=== PATIENT | female | born 1975 ===

== ENCOUNTER 2024-09-25 15:24 | Outpatient (REF) | payer OTHER, SELFPAY ==
--- OUTSIDE RECORDS SUMMARY | 2024-09-25 16:17 | XMS_ITS | Continuity of Care Document ---
Author Organization [facility] Address [address] [facility] [address] [place], [place] Phone [phone] Care Team Providers Care Mysql Dba Name Role Phone Kathy Bill MD Care Team Information Mental Health Nurse Practitioner U navailable CAIT WORKMAN M.D. Care Team Information Rec eiver Unavailable Kathy Bill MD Primary Care Physician Unavailab le Problems Active Problems Provider Date Osteoporosis Cait Workman M.D. Onset: 0 08/10/2021 Social History Type Date Description Comments Sex Unknown Allergies and adverse reactions Active Allergies Criticality Reaction Severity Comments Date Doxycycline Unable to assess criticality 07/27/2021 Tetracycline Unable to assess criticality 07/27/2021 Erythromycin Unable to assess criticality 07/27/2021 Amoxicillin Unable to assess criticality 07/27/2021 Sulfur Unable to assess criticality 07/27/2021 Medications Active Medications SIG Qnty Indications Ordering Provider Date CA+ citrate 250 bid(08/2021)->qid (08/2021) Cait Workman M.D. 08/26/2021 Alendronate [id number] Tablets 1 tab by mouth every week 4tabs M81.0 Cait Workman M.D. 08/26/2021 Vit D Drops 500/drop x2(08/2021)->3/d Unknown
== END 2024-09-25 15:25 | disposition home or self-care (01) ==
LOC: CF 15:24
DX: Z13.89 Encounter for screening for other disorder (principal)

== ENCOUNTER 2024-10-26 08:13 | Outpatient (REF) | payer OTHER, SELFPAY ==
--- NOTE | ~2024-10-26 | US_ITS ---
EXAMINATION: US SCREENING ULTRASOUND BREAST, BILATERAL CLINICAL INFORMATION: Dense breasts on mammography. Screening ultrasound. COMPARISON: None available. TECHNIQUE: Ultrasound is performed using grayscale imaging and color Doppler. Imaging is performed to include the four quadrants and retroareolar region. Both breasts are imaged. FINDINGS: Right breast: There is no suspicious finding by ultrasound. There is no solid mass or focal architectural abnormality. Left breast: There is no suspicious finding by ultrasound. There is no solid mass or focal architectural abnormality. US/US breast BI complete IMPRESSION: No suspicious findings on screening breast ultrasound. ASSESSMENT: BI-RADS 1 - Negative RECOMMENDATION: 1 year F/U This patient's information was entered into a reminder system with a target due date for their next mammogram. Electronically signed by: Brit Garcia DO 10/26/2024 09:10 AM EDT
--- OUTSIDE RECORDS SUMMARY | 2024-10-26 08:17 | XMS_ITS | Continuity of Care Document ---
Author Organization [facility] Address [address] [facility] [address] [place], [place] Phone [phone] Care Team Providers Care Dockworker Name Role Phone Kathy Bill MD Care Team Information Track Layer U navailable CAIT WORKMAN M.D. Care Team [...] bid(08/2021)->qid (08/2021) Cait Workman M.D. 08/26/2021 Alendronate [id number] Tablets 1 tab by mouth every week 4tabs M81.0 Cait Workman M.D. 08/26/2021 Vit D Drops 500/drop x2(08/2021)->3/d Unknown
--- OUTSIDE RECORDS SUMMARY | 2024-10-26 08:18 | XMS_ITS | Data Portability ---
Author Organization [facility], [facility] Address [address] [place] [address] Care Team Providers [employer] Recruiter Name Role Phone MICKI CANALES Primary Care Provider Assessment Encounter Date Assessment Date Assessment LastModified by Organization Details LastModified Time 02/11/2023 02/11/2023 I have spent a total of 45 min preparing for this visit, examining and treating the patient, reviewing history and records as well as coordinating care for the patient. [email or web address] Not available 02/16/2023 08:30:52 03/04/2023 03/04/2023 I have spent a total of 30 min preparing for this visit, examining and treating the patient, reviewing history and records as well as coordinating care for the patient. [email or web address] Not available 03/04/2023 10:07:31 06/06/2024 06/06/2024 Patient agreed t o this visit via a secure telehealth platform. Patient understands this is a scheduled visit and the usual procedures with regard to billing and confidentiality apply. Patient was notified that the provider location is [facility] Patient location: home During the visit the patient? s medical history and medical record were reviewed. The patient was notified to call our office for worsening or urgent symptoms. Not available 06/06/2024 15:10:13 07/18/2024 07/18/2024 Patient is seen and examined with LEIGH Wall. Assessment and Plan formulated with the above student collaboratively with the patient. Micki Canales MD Not available 07/18/2024 16:50:14 Plan of Treatment Reminders Order Date Submit Date Provider Last Modified By Organization Details Last Modified Time Details Appointments Wellne ss Visit 30 2024 11:00A M Micki Canales MD Not available Not available Not available Lab CMP, serum or plasma 2022 023 [facility], [address] [place] [address], [address], 03/07/2023 12:10:10 CBC 2022 023 [facility], [address] [place] [address], [address], 03/04/2023 12:19:06 Referral neurol ogist referr al 2022 023 [email or web address] anabel Wooten MD, [address], [address], 04/19/2023 15:29:54 Procedures None record ed. Surgeries None record ed. Imaging MRI, brain, w/wo contra st - Withou t is OK. Thank you. 2022 023 [facility] ([facility]), [address] [place], [address], 02/14/2023 08:51:38 Medication Orders escita lopram 5 mg tablet 2023 024 [facility] #[id number], [address] [place], [address], 07/18/2024 15:00:12 escita lopram 5 mg tablet 2023 024 [facility][id number], [address] [place], [address], 06/06/2024 15:13:38 sumatr iptan 50 mg tablet 2022 023 [email or web address] [facility] #[id number], [address] [place], [address], 12/21/2023 11:50:07 Patient TargetsNo targets recorded. Patient InstructionsNo instructions recorded. Reason for Referral Neurologist Referral for Patricia medina Referring Physician: Jaye Shaver, Family Medicine, Encounter Date: 02/11/2023 Results Created Date Observation Date Name Description Value Unit Range Abnormal Flag Note LastModifiedBy Organization Detail LastModifiedTime 02/17/20 23 02/17/2023 CBC WBC 9.19 K/? ? ?L 3.98-1 0.04 Not Available [address], [address], 02/17/2023 11:10:17 02/17/20 23 02/17/2023 CBC RBC 4.43 M/? ? ?L 3.93-5 .22 Not Available [address], [address], 02/17/2023 11:10:17 02/17/20 23 02/17/2023 CBC HGB 13.7 g/dL 11.2-1 5.7 Not Available [address], [address], 02/17/2023 11:10:17 02/17/20 23 02/17/2023 CBC HCT 43.6 % 34.1-4 4.9 Not Available [address], [address], 02/17/2023 11:10:17 02/17/20 23 02/17/2023 CBC MCV 98.4 fL 79.4-9 4.8 high Not Available [address], [address], 02/17/2023 11:10:17 02/17/20 23 02/17/2023 CBC MCH 30.9 pg 25.6-3 2.2 Not Available [address], [address], 02/17/2023 11:10:17 02/17/20 23 02/17/2023 CBC MCHC 31.4 g/dL 32.2-3 5.5 low Not Available [address], [address], 02/17/2023 11:10:02/17/2002/17/2023 CBC plt 357 K/? ? ?L 182-36 9 Not Available [address], [address], 02/17/2023 11:10:02/17/2002/17/2023 CBC MPV 10.6 fL 9.4-12 .3 Not Available [address], [address], 02/17/2023 11:10:02/17/2002/17/2023 CBC neut% 77.9 % 34.0-7 1.1 high Not Available [address], [address], 02/17/2023 11:10:02/17/2002/17/2023 CBC neut# 7.16 1.56-6 .13 high Not Available [address], [address], 02/17/2023 11:10:02/17/2002/17/2023 CBC lymph % 14.4 % 19.3-5 1.7 low Not Available [address], [address], 02/17/2023 11:10:17 02/17/2002/17/2023 CBC lymph # 1.32 K/? ? ?L 1.18-3 .74 Not Available [address], [address], 02/17/2023 11:10:02/17/2002/17/2023 CBC mono% 5.2 % 4.7-12 .5 Not Available [address], [address], 02/17/2023 11:10:17 02/17/2002/17/2023 CBC mono# 0.48 0.24-0 .56 Not Available [address], [address], 02/17/2023 11:10:17 02/17/20 23 02/17/2023 CBC eo% 1.5 % 0.7-5. 8 Not Available [address], [address], 02/17/2023 11:10:17 02/17/20 23 02/17/2023 CBC eo# 0.14 0.04-0 .36 Not Available [address], [address], 02/17/2023 11:10:17 02/17/20 23 02/17/2023 CBC baso% 0.8 % 0.1-1. 2 Not Available [address], [address], 02/17/2023 11:10:17 02/17/20 23 02/17/2023 CBC baso# 0.07 0.00-0 .08 Not Available [address], [address], 02/17/2023 11:10:17 02/17/20 23 02/17/2023 CBC RDW-CV 12.8 % 11.7-1 4.4 Not Available [address], [address], 02/17/2023 11:10:17 02/17/20 23 02/17/2023 CBC Ig% 0.200 % 0.000- 1.500 Ig % >0.5 Indic ates possi ble Left Shift Not Available [address], [address], 02/17/2023 11:10:17 02/17/20 23 02/17/2023 CBC Ig# 0.020 0.000- 0.093 Not Available [address], [address], 02/17/2023 11:10:17 02/17/20 23 02/17/2023 CBC NRBC% 0.0 % 0.0-0. 2 Not Available [address], [address], 02/17/2023 11:10:17 02/17/20 23 02/17/2023 CBC NRBC# 0.000 0.000- 0.012 Not Available [address], [address], 02/17/2023 11:10:17 02/17/20 23 02/17/2023 COMP. METAB OLIC PANEL glucose 99 mg/dL 70-100 Not Available [address], [address], 02/17/2023 11:14:30 02/17/20 23 02/17/2023 COMP. METAB OLIC PANEL BUN 8 mg/dL 7-18 Not Available [address], [address], 02/17/2023 11:14:30 02/17/20 23 02/17/2023 COMP. METAB OLIC PANEL creatinine 0.6 mg/dL 0.8-1. 3 low Not Available [address], [address], 02/17/2023 11:14:30 02/17/20 23 02/17/2023 COMP. METAB OLIC PANEL B/C 13.3 ratio Not Available [address], [address], 02/17/2023 11:14:30 02/17/20 23 02/17/2023 COMP. METAB OLIC PANEL GFR >=60ML /MIN mL/mi n normal >=60m L/min - Jenn l or midly reduc ed <60mL /min- Decre ased kidne y funct ion <15mL /min - Kidne y failu re [facility] calcu lates estim ated Glome rular Filtr ation Rate (eGFR ) using the Chron ic Kidne y Disea se Epide miolo gy Colla borat ion (CKD- EPI) Equat ion (Morena r et. al 2020) as recom kalin d by the Natio nal Kidne y Found ation . eGFR is based on age, serum creat inine , and sex. CKD-E PI does not calcu late eGFR by race, does not apply to child gary (age <18 years ), and shoul d not be used in pregn nataliya. Not Available [address], [address], 02/17/2023 11:14:30 02/17/20 23 02/17/2023 COMP. METAB OLIC PANEL sodium 137 mmol/ L 136-14 5 Not Available [address], [address], 02/17/2023 11:14:30 02/17/20 23 02/17/2023 COMP. METAB OLIC PANEL potassium 4.9 mmol/ L 3.5-5. 1 Not Available [address], [address], 02/17/2023 11:14:30 02/17/20 23 02/17/2023 COMP. METAB OLIC PANEL chloride 100 mmol/ L 96-107 Not Available [address], [address], 02/17/2023 11:14:30 02/17/20 23 02/17/2023 COMP. METAB OLIC PANEL anion gap 7.9 5.0-15 .0 Not Available [address], [address], 02/17/2023 11:14:30 02/17/20 23 02/17/2023 COMP. METAB OLIC PANEL CO2 29 mmol/ L 21-32 Not Available [address], [address], 02/17/2023 11:14:30 02/17/20 23 02/17/2023 COMP. METAB OLIC PANEL calcium 8.8 mg/dL 8.5-10 .3 Not Available [address], [address], 02/17/2023 11:14:30 02/17/20 23 02/17/2023 COMP. METAB OLIC PANEL total protein 6.9 g/dL 6.4-8. 2 Not Available [address], [address], 02/17/2023 11:14:30 02/17/20 23 02/17/2023 COMP. METAB OLIC PANEL albumin 3.4 g/dL 3.4-5. 0 Not Available [address], [address], 02/17/2023 11:14:30 02/17/20 23 02/17/2023 COMP. METAB OLIC PANEL globulin 3.5 g/dL Not Available [address], [address], 02/17/2023 11:14:30 02/17/20 23 02/17/2023 COMP. METAB OLIC PANEL A/G 1.0 ratio 0.8-2. 0 Not Available [address], [address], 02/17/2023 11:14:30 02/17/20 23 02/17/2023 COMP. METAB OLIC PANEL total bilirubin 0.50 mg/dL 0.00-1 .00 Not Available [address], [address], 02/17/2023 11:14:30 02/17/20 23 02/17/2023 COMP. METAB OLIC PANEL AST 15 U/L 0-37 Not Available [address], [address], 02/17/2023 11:14:30 02/17/20 23 02/17/2023 COMP. METAB OLIC PANEL ALT 37 U/L 6-63 Not Available [address], [address], 02/17/2023 11:14:30 02/17/20 23 02/17/2023 COMP. METAB OLIC PANEL alk. phos. 129 U/L 50-136 Not Available [address], [address], 02/17/2023 11:14:30 02/17/20 23 02/17/2023 TSH TSH 1.60 uIU/m L 0.50-6 .00 The Ameri can Colle ge of Endoc rinol ogy and Ameri can Thyro id Assoc iatio n recom mend goal TSH value s betwe en 0.4-4 .0 mIU/m L. Not Available [address], [address], 02/17/2023 11:34:45 02/17/20 23 02/19/2023 TICK BORNE DISEA SE, ACUTE MOLEC ULAR PANEL anaplasma phagocytophi lum DNA, ql real time PCR NOT DETECT ED not detect ed normal This test was devel oped and its gui tical perfo rmanc e teto cteri stics have been deter mined by [facility]. It has not been clear ed or appro lesia by the FDA. This assay has been valid ated pursu ant to the CLIA regul ation s and is used for clini sybil purpo ses. Not Available [facility] [address] [place] [address], [place], [address], 02/19/2023 17:58:30 02/17/20 23 02/19/2023 TICK BORNE DISEA SE, ACUTE MOLEC ULAR PANEL babesia microti DNA, real time PCR NOT DETECT ED not detect ed normal This test was devel oped and its gui tical perfo rmanc e teto cteri stics have been deter mined by [facility]. It has not been clear ed or appro lesia by the FDA. This assay has been valid ated pursu ant to the CLIA regul ation s and is used for clini sybil purpo ses. Not Available [facility] [address], [address], 02/19/2023 17:58:30 02/17/20 23 02/19/2023 TICK BORNE DISEA SE, ACUTE MOLEC ULAR PANEL borrelia miyamotoi DNA, ql real time PCR NOT DETECT ED not detect ed normal This test detec ts but does not disti nguis h betwe en B. miyam otoi and B. herms ii. This test was devel oped and its gui tical perfo rmanc e teto cteri stics have been deter mined by [facility]. It has not been clear ed or appro lesia by the FDA. This assay has been valid ated pursu ant to the CLIA regul ation s and is used for clini sybil purpo ses. Not Available [facility] [address], [address], 02/19/2023 17:58:30 02/17/20 23 02/19/2023 TICK BORNE DISEA SE, ACUTE MOLEC ULAR PANEL ehrlichia chaffeensis DNA real time PCR NOT DETECT ED not detect ed normal This test was devel oped and its gui tical perfo rmanc e teto cteri stics have been deter mined by [facility]. It has not been clear ed or appro lesia by the FDA. This assay has been valid ated pursu ant to the CLIA regul ation s and is used for clini sybil purpo ses. Not Available [facility] [address], [place], [address], 02/19/2023 17:58:30 02/17/20 23 02/19/2023 TICK BORNE DISEA SE, ACUTE MOLEC ULAR PANEL borrelia species DNA, ql real time PCR DETECT ED not detect ed abnormal This test was devel oped and its gui tical perfo rmanc e teto cteri stics have been deter mined by [facility]. It has not been clear ed or appro lesia by the FDA. This assay has been valid ated pursu ant to the CLIA regul ation s and is used for clini sybil purpo ses. For addit ional infor isaias tyler refer to https ://davion wolf on.qu dionisio melendez Templafy. Heliae/f aq/fa q224 (This link is being provi ded for infor aimee gray/ educa gaurav l purpo ses only. ) Not Available [facility] [address], [address], 02/19/2023 17:58:30 02/17/20 23 02/19/2023 TICK BORNE DISEA SE, ACUTE MOLEC ULAR PANEL comment The Borre trace speci es test detec ts but does not diffe renti ate DNA from B. burgd orfer i, B. afzel ii, B. biset tii, B. herms ii, B. miyam otoi, B. tyrone sonii , and B. garni patrick. A negat nancie B. miyam otoi resul t does not exclu de infec tion as the irma ntrat ion of the organ ism in blood may be low. Clini sybil chato lima n is recom kalin d. Not Available [facility] [address], [address], 02/19/2023 17:58:30 02/17/2002/22/2023 LYME SCREE N, REFLE X TO IGG AND IGM borrelia burgdorferi IgG/IgM Ab Pos negati ve abnormal <=0.9 0 - Negat nancie 0.91 - 1.09 - Equiv ocal >=1.1 0 - Posit nancie Inter preta tion: If Borre trace VlsE1 pep C10 (IgG, IgM) Antib jeff is posit nancie, the sampl e is refle xed to B. burgd orfer i IgG and B. burgd orfer i IgM. If the infec tion is recen t and the B. burgd orfer i IgM is posit nancie, then this is good evide nce to confi rm recen t infec tion. If the infec tion is more than 30 days, and B. burgd orfer i IgG resul t is posit nancie, then this is good evide nce of curre nt or past infec tion. A negat nancie B. burgd orfer i VlsE1 pepC1 0 (IgG, IgM) ivonne n is consi dered negat nancie for infec tion. Not Available [address], [address], 02/22/2023 14:36:55 02/17/20 23 02/25/2023 LYME ANTIB ODIES , IGG borrelia burgdorferi, IgG Ab Pos negati ve abnormal Not Available [address], [address], 02/25/2023 13:48:30 02/17/20 23 02/25/2023 LYME ANTIB ODIES , IGM borrelia burgdorferi, IgM Pos negati ve abnormal Not Available [address], [address], 02/25/2023 13:48:31 03/04/20 23 03/04/2023 CBC WBC 4.45 K/? ? ?L 3.98-1 0.04 Not Available [address], [address], 03/04/2023 12:19:06 03/04/20 23 03/04/2023 CBC RBC 4.41 M/? ? ?L 3.93-5 .22 Not Available [address], [address], 03/04/2023 12:19:06 03/04/20 23 03/04/2023 CBC HGB 13.5 g/dL 11.2-1 5.7 Not Available [address], [address], 03/04/2023 12:19:06 03/04/20 23 03/04/2023 CBC HCT 41.6 % 34.1-4 4.9 Not Available [address], [address], 03/04/2023 12:19:06 03/04/20 23 03/04/2023 CBC MCV 94.3 fL 79.4-9 4.8 Not Available [address], [address], 03/04/2023 12:19:06 03/04/20 23 03/04/2023 CBC MCH 30.6 pg 25.6-3 2.2 Not Available [address], [address], 03/04/2023 12:19:06 03/04/2003/04/2023 CBC MCHC 32.5 g/dL 32.2-3 5.5 Not Available [address], [address], 03/04/2023 12:19:06 03/04/20 23 03/04/2023 CBC plt 258 K/? ? ?L 182-36 9 Not Available [address], [address], 03/04/2023 12:19:06 03/04/2003/04/2023 CBC MPV 10.5 fL 9.4-12 .3 Not Available [address], [address], 03/04/2023 12:19:06 03/04/2003/04/2023 CBC neut% 41.2 % 34.0-7 1.1 Not Available [address], [address], 03/04/2023 12:19:06 03/04/2003/04/2023 CBC neut# 1.83 1.56-6 .13 Not Available [address], [address], 03/04/2023 12:19:06 03/04/2003/04/2023 CBC lymph % 47.2 % 19.3-5 1.7 Not Available [address], [address], 03/04/2023 12:19:06 03/04/20 23 03/04/2023 CBC lymph # 2.10 K/? ? ?L 1.18-3 .74 Not Available [address], [address], 03/04/2023 12:19:06 03/04/20 23 03/04/2023 CBC mono% 7.6 % 4.7-12 .5 Not Available [address], [address], 03/04/2023 12:19:06 03/04/20 23 03/04/2023 CBC mono# 0.34 0.24-0 .56 Not Available [address], [address], 03/04/2023 12:19:06 03/04/20 23 03/04/2023 CBC eo% 2.5 % 0.7-5. 8 Not Available [address], [address], 03/04/2023 12:19:06 03/04/20 23 03/04/2023 CBC eo# 0.11 0.04-0 .36 Not Available [address], [address], 03/04/2023 12:19:06 03/04/20 23 03/04/2023 CBC baso% 1.3 % 0.1-1. 2 high Not Available [address], [address], 03/04/2023 12:19:06 03/04/20 23 03/04/2023 CBC baso# 0.06 0.00-0 .08 Not Available [address], [address], 03/04/2023 12:19:06 03/04/20 23 03/04/2023 CBC RDW-CV 12.8 % 11.7-1 4.4 Not Available [address], [address], 03/04/2023 12:19:06 03/04/20 23 03/04/2023 CBC Ig% 0.200 % 0.000- 1.500 Ig % >0.5 Indic ates possi ble Left Shift Not Available [address], [address], 03/04/2023 12:19:06 03/04/20 23 03/04/2023 CBC Ig# 0.010 0.000- 0.093 Not Available [address], [address], 03/04/2023 12:19:06 03/04/20 23 03/04/2023 CBC NRBC% 0.0 % 0.0-0. 2 Not Available [address], [address], 03/04/2023 12:19:06 03/04/20 23 03/04/2023 CBC NRBC# 0.000 0.000- 0.012 Not Available [address], [address], 03/04/2023 12:19:06 03/04/20 23 03/07/2023 COMP. METAB OLIC PANEL glucose 83 mg/dL 70-100 Not Available [address], [address], 03/07/2023 12:10:10 03/04/20 23 03/07/2023 COMP. METAB OLIC PANEL BUN 5 mg/dL 7-18 low Not Available [address], [address], 03/07/2023 12:10:10 03/04/20 23 03/07/2023 COMP. METAB OLIC PANEL creatinine 0.6 mg/dL 0.8-1. 3 low Not Available [address], [address], 03/07/2023 12:10:10 03/04/20 23 03/07/2023 COMP. METAB OLIC PANEL B/C 8.3 ratio Not Available [address], [address], 03/07/2023 12:10:10 03/04/20 23 03/07/2023 COMP. METAB OLIC PANEL GFR >=60ML /MIN mL/mi n normal >=60m L/min - Jenn l or midly reduc ed <60mL /min- Decre ased kidne y funct ion <15mL /min - Kidne y failu re [facility] al Group calcu lates estim ated Glome rular Filtr ation Rate (eGFR ) using the Chron ic Kidne y Disea se Epide miolo gy Colla borat ion (CKD- EPI) Equat ion (Morena waters et. al 2020) as recom kalin d by the Natio nal Kidne y Found ation . eGFR is based on age, serum creat inine , and sex. CKD-E PI does not calcu late eGFR by race, does not apply to child gary (age <18 years ), and shoul d not be used in pregn nataliya. Not Available [address], [address], 03/07/2023 12:10:10 03/04/20 23 03/07/2023 COMP. METAB OLIC PANEL sodium 138 mmol/ L 136-14 5 Not Available [address], [address], 03/07/2023 12:10:10 03/04/20 23 03/07/2023 COMP. METAB OLIC PANEL potassium 3.9 mmol/ L 3.5-5. 1 Not Available [address], [address], 03/07/2023 12:10:10 03/04/20 23 03/07/2023 COMP. METAB OLIC PANEL chloride 100 mmol/ L 96-107 Not Available [address], [address], 03/07/2023 12:10:10 03/04/20 23 03/07/2023 COMP. METAB OLIC PANEL anion gap 7.7 5.0-15 .0 Not Available [address], [address], 03/07/2023 12:10:10 03/04/20 23 03/07/2023 COMP. METAB OLIC PANEL CO2 30 mmol/ L 21-32 Not Available [address], [address], 03/07/2023 12:10:10 03/04/20 23 03/07/2023 COMP. METAB OLIC PANEL calcium 8.8 mg/dL 8.5-10 .3 Not Available [address], [address], 03/07/2023 12:10:10 03/04/20 23 03/07/2023 COMP. METAB OLIC PANEL total protein 6.8 g/dL 6.4-8. 2 Not Available [address], [address], 03/07/2023 12:10:10 03/04/20 23 03/07/2023 COMP. METAB OLIC PANEL albumin 3.6 g/dL 3.4-5. 0 Not Available [address], [address], 03/07/2023 12:10:10 03/04/20 23 03/07/2023 COMP. METAB OLIC PANEL globulin 3.2 g/dL Not Available [address], [address], 03/07/2023 12:10:10 03/04/20 23 03/07/2023 COMP. METAB OLIC PANEL A/G 1.1 ratio 0.8-2. 0 Not Available [address], [address], 03/07/2023 12:10:10 03/04/20 23 03/07/2023 COMP. METAB OLIC PANEL total bilirubin 0.40 mg/dL 0.00-1 .00 Not Available [address], [address], 03/07/2023 12:10:10 03/04/20 23 03/07/2023 COMP. METAB OLIC PANEL AST 32 U/L 0-37 Not Available [address], [address], 03/07/2023 12:10:10 03/04/20 23 03/07/2023 COMP. METAB OLIC PANEL ALT 44 U/L 6-63 Not Available [address], [address], 03/07/2023 12:10:10 03/04/20 23 03/07/2023 COMP. METAB OLIC PANEL alk. phos. 75 U/L 50-136 Not Available [address], [address], 03/07/2023 12:10:10 01/18/20 24 01/25/2024 LYME SCREE N, REFLE X TO IGG AND IGM borrelia burgdorferi IgG/IgM Ab NEG negati ve normal <=0.9 0 - Negat nancie 0.91 - 1.09 - Equiv ocal >=1.1 0 - Posit nancie Inter preta tion: If Borre trace VlsE1 pep C10 (IgG, IgM) Antib jeff is posit nancie, the sampl e is refle xed to B. burgd orfer i IgG and B. burgd orfer i IgM. If the infec tion is recen t and the B. burgd orfer i IgM is posit nancie, then this is good evide nce to confi rm recen t infec tion. If the infec tion is more than 30 days, and B. burgd orfer i IgG resul t is posit nancie, then this is good evide nce of curre nt or past infec tion. A negat nancie B. burgd orfer i VlsE1 pepC1 0 (IgG, IgM) ivonne stock is consi dered negat nancie for infec tion. Not Available [facility] [address] [place], [address], 01/25/2024 11:32:31 02/20/20 23 02/19/2023 MRI, brain , w/o contr ast No observ ation record ed. [email or web address] n [facility] ([facility]) [address] [place], [address], 02/23/2023 08:04:15 02/20/20 23 02/19/2023 MRI, brain , w/o contr ast No observ ation record ed. [facility] [address] [place], [address], 02/21/2023 09:47:49 02/20/20 23 02/19/2023 MRI, brain , w/o contr ast No observ ation record ed. [facility] ([facility]) [address] [place], [address], 02/20/2023 14:25:33 02/23/20 23 12/08/2022 elect shavonnenoelle kwakugr am No observ ation record ed. [email or web address] Not Available 2022 13:39:51 12/27/19 24 12/23/2023 MAMMO , scree maite, tomos ynthe sis, bilat eral, w/ CAD BI MAMMOG JESSIE SCREEN ING WITH TOMOSY NTHESI S WITH CAD (BILAT ERAL) Additi onal patien t inform ation: Screen ing. COMPAR CLEMENTE: Compar clemente is made with releva nt prior imagin g. Breast compos ition: The breast tissue is hetero geneou sly dense which may obscur e small masses . FINDIN GS: Multip le bilate ral partia lly circum scribe d simila r-appe aring masses are compat ible with benign etiolo gy. No abnorm al masses , suspic ious calcif icatio ns, or other signif icant findin gs are identi fied mammog raphic ally in either breast . IMPRES NINO: No mammog raphic eviden ce of malign nataliya in either breast . Annual screen ing mammog bereket is recomm ended. BI-RAD S 2 BENIGN The patien t will be notifi ed of the result s and recomm endati ons. Electr onical ly Signed by: Dr. Malina Riley on 024 12:39 PM Interp reted by: Malina Riley MD, PhD Signed by: Malina Riley MD, PhD 4 CC Recipi ents: Micki Canales MD - Fax Final result No new concer ns. Previo us screen ing 023 BI-RAD S 1. CG MAMMO Screen ing; breast screen annual MICKI CANALES JUAN MANUEL L FURCOL O JUAN MANUEL L FURCOL O [id number] [facility] [address] [place], [address], 12/27/2023 14:14:20 12/27/19 24 12/23/2023 MAMMO , scree maite No observ ation record ed. [id number] [address] [place], [address], 12/27/2023 14:14:21 Result Notes None recorded. Problems Name Problem SNOMED Code Status Onset Date Resolution Date Notes Provider Name and Address Organization Details Recorded Time Vitamin D deficienc y 49687060 Active Not Available [facility] 3 03:15:09 Osteopeni a 192058243 Active 2015 Jennie Heredia D.O. 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 Micki Canales MD [address] [place] [address], [phone] , [facility] 4 12:22:45 Chronic headache disorder 181665301 Active 2022 menstrual headaches Micki Canales MD [address] [place] [address], [phone] , [facility] 4 12:21:59 Joint pain 26761077 Active 2022 intermitte nt, hands, manageable Micki Canales MD [address] [place] [address], [id number] , [facility] 4 12:21:38 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 Procedures Surgical History Date Name Laterality Status Provider Name and Address Organization Details Recorded Time 4 COPD Screening Questions completed Alma Felder MA [facility] 06/06/2024 14:56:17 3 COPD Screening Questions completed ANTONIO Ramesh [facility] 12/16/2022 11:04:54 excision of lymph node completed Eli Balderas CMA [facility] 12/01/2022 14:18:22 Imaging Results Imaging Date Name Status LastModified by Organization Details LastModified Time 02/19/2023 MRI, brain, w/o contrast [facility] [address] [place] [address], [address], 02/23/2023 08:04:15 02/19/2023 MRI, brain, w/o contrast completed [address], [address], 02/21/2023 09:47:49 02/19/2023 MRI, brain, w/o contrast completed [facility] ([facility]) [address] [place] [address], [address], 02/20/2023 14:25:33 12/08/2022 electrocardiogram completed [email or web address] Informa tion not available 02/22/2023 13:39:51 12/23/2023 MAMMO, screening, tomosynthesis, bilateral, w/ CAD completed [facility] [address] , [place], [address], 12/27/2023 14:14:20 12/23/2023 MAMMO, screening completed [address], [place], [address], 12/27/2023 14:14:21 Procedure Notes None recorded. Medical Equipment None Reported. Allergies Allergen ID Allergen Name Allergen Category Reaction Reaction Severity Criticality Documentation Date Start Date Code Code System Note Provider Name and Address Organization Details Recorded Time 323810 doxycycli ne Not available hives moderate Not available 06/10/2016 3640 [facility] 6 13:40:23 731709 erythromy josie medicatio n hives moderate Not available 06/10/2016 4053 [facility] 6 13:40:36 272282 amoxicill in medicatio n hives moderate Not available 06/10/2016 723 RxNorm Lolis Guzman [facility] 6 13:40:51 701697 Substance with sulfonami de structure and antibacte rial mechanism of action (substanc e) medicatio n Not available Not available Not available 09/28/2016 16647 8003 SNOMED [facility] 7 07:43:41 27719 Product containin g penicilli n (product) medicatio n Not available Not available Not available 08/06/2009 15855 8001 SNOMED CILLI NS Not Available [facility] 1 06:05:20 508775 sertralin e medicatio n Not available Not available Not available 12/01/2022 01447 RxNorm Eli Balderas CARE MANAGEMENT ASSOCIATE null, [facility] 3 14:15:26 696924 poison umer extract environme nt dyspnea rash moderate Not available [facility] 12/08/2022 81749 6 RxNorm Malinda Krishna PA-C [address] [place] [address], [place], [address] , [facility] 3 09:45:00 788687 prednison e medicatio n itching moderate Not available 12/15/2022 8640 RxNorm Lizabeth Talavera MA null, [facility] 3 13:55:09 Medications Name Sig Start Date Stop Date Status Note LastModified by Organization Details LastModified Time amoxicillin 500 mg capsule Take 1 capsule 3 times a day by oral route as directed for 10 days. 07/31 completed Not Available Not Available Not Available prednisone 10 mg tablet PLEASE SEE ATTACHED FOR DETAILED DIRECTION S 02/11 completed Not Available Not Available Not Available cetirizine 10 mg tablet TAKE 2 TABLETS BY MOUTH EVERY DAY 02/11 completed Not Available Not Available Not Available cefpodoxime 200 mg tablet Take 1 tablet every 12 hours by oral route for 7 days. 11/30 completed Not Available Not Available Not Available rizatriptan 10 mg tablet TAKE 1 TABLET BY MOUTH ONCE NEEDED :FOR MIGRAINE HEADACHE active Not Available Not Available No t Available betamethaso ne, augmented 0.05 % topical cream 02/11 completed Not Available Not Available Not Available sumatriptan 50 mg tablet TAKE 1 TABLET BY ORAL ROUTE DIRECTED. 12/20 completed Not Available Not Available Not Available peg-electro lyte solution 420 gram oral solution TAKE DIRECTED BY 12/15 completed Not Available Not Available Not Available lorazepam 0.5 mg tablet TAKE 1 TABLET BY MOUTH ONCE DAILY NEEDED FOR ANXIETY 12/16 completed Not Available Not Available Not Available baclofen 10 mg tablet TAKE 1 TABLET BY MOUTH 3 TIMES A DAY FOR 10 DAYS 06/22 completed Not Available Not Available Not Available triamcinolo ne acetonide 0.1 % topical ointment APPLY THIN COAT TO AFFECTED AREA TWICE A DAY 12/16 completed Not Available Not Available Not Available sertraline 25 mg tablet TAKE HALF A TABLET BY MOUTH ONCE DAILY FOR 60 DAYS 12/16 completed Not Available Not Available Not Available bisacodyl 5 mg tablet,pearl yed release 4 TABLETS ORALLY DIRECTED 1 DAY 12/20 completed Not Available Not Available Not Available mupirocin 2 % topical ointment APPLY A SMALL AMOUNT TO THE AFFECTED AREA BY TOPICAL ROUTE 3 TIMES PER DAY AND INTRANASA LLY 02/11 completed Not Available Not Available Not Available epinephrine 0.3 mg/0.3 mL injection, auto-inject or PLEASE SEE ATTACHED FOR DETAILED DIRECTION S active Not Available Not Available No t Available cefuroxime axetil 500 mg tablet TAKE 1 TABLET BY MOUTH EVERY 12 HOURS FOR 7 DAYS 12/20 completed Not Available Not Available Not Available hydroxyzine HCl 10 mg tablet TAKE 1-5 TABLETS BY MOUTH AT BEDTIME NEEDED FOR ITCH 02/11 completed Not Available Not Available Not Available naproxen 500 mg tablet TAKE 1 TABLET BY MOUTH TWICE A DAY 06/22 completed Not Available Not Available Not Available escitalopra m 5 mg tablet 3 tablets daily active Not Available Not Available No t Available Creon 36,000 unit-114,00 0 unit-180,00 0 unit capsule,del ayed release 12/16 completed Not Available Not Available Not Available FriedaW COVID-19 Ag Self Test kit USE TO TEST DIRECTED 12/08 completed Not Available Not Available Not Available Paxlovid 300 mg (150 mg x 2)-100 mg tablets in a dose pack TAKE 3 TABLETS BY MOUTH TWICE A DAY FOR 5 DAYS DIRECTED ON DOSE PACK 06/06 completed Not Available Not Available Not Available Vitals Date Recorded Body height Body mass index (BMI) Body weight Heart rate Oxygen saturation Oxygen saturation in Arterial blood by Pulse oximetry Systolic blood pressure Diastolic blood pressure Provider Name and Address Organization Details Last Updated DateTime 3 167.64 cm 20.5 kg/m2 42159.2 3 g 91 /min 98 % 98 % 104 mm[Hg] 74 mm[Hg] ANTONIO Ramesh [facility] 3 11:44:37 Date Recorded Body height Body mass index (BMI) Body weight Heart rate Systolic blood pressure Diastolic blood pressure Provider Name and Address Organization Details Last Updated DateTime 3 167.64 cm 20.5 kg/m2 05572.2 3 g 81 /min 101 mm[Hg] 69 mm[Hg] Sarai Chato [facility] 3 09:12:36 Date Recorded Body height Body mass index (BMI) Body weight Heart rate Oxygen saturation Oxygen saturation in Arterial blood by Pulse oximetry Systolic blood pressure Diastolic blood pressure Provider Name and Address Organization Details Last Updated DateTime 4 167.64 cm 20.5 kg/m2 80423.2 3 g 76 /min 99 % 99 % 104 mm[Hg] 62 mm[Hg] Fabi Chaidez, Tye [facility] 4 11:54:15 Date Recorded Body height Provider Name an d Address Organization Details Last Updated DateTime 06/06/2024 167.64 cm Alma Felder [facility] 06/06/2024 14:58:57 Date Recorded Body height Body mass index (BMI) Body weight Heart rate Oxygen saturation Oxygen saturation in Arterial blood by Pulse oximetry Systolic blood pressure Diastolic blood pressure Provider Name and Address Organization Details Last Updated DateTime 4 167.64 cm 20.3 kg/m2 21837.6 4 g 83 /min 99 % 99 % 124 mm[Hg] 64 mm[Hg] Fabi Chaidez Tye [facility] 4 14:21:14 Social History Question Answer Notes LastModified by Organization Details LastModified Time Tobacco Smoking Status Former Smoker in her 20's 06/06/24 07/18/24 ANTONIO Jarvis [facility] 07/18/2024 14:19:01 What Is Your Level Of Alcohol Consumption? Occasional 1 Maybe Every 2 Weeks Information not available 06/10/2016 Do You Wear A Helmet When Biking? Yes Information not available 06/10/2016 What Is Your Level Of Caffeine Consumption? Heavy Coffe & Black & Green Tea Occasionally Information not available 06/10/2016 How Much Tobacco Do You Chew? None Information not available 06/10/2016 What Type Of Diet Are You Following? VEGETARIAN Sometimes Fish & Chicken Information not available 06/10/2016 Which Illicit Or Recreational Drugs Have You Used? 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 No Information not available 06/10/2016 Live Alone Or With Others? With Others Information not available 06/10/2016 Patient Has Health Care Proxy Signed And In Chart Yes Davidson Salazar [email or web address] Information not available 12/17/2022 Marital Status : Davidson Infor mation not available 08/06/2009 Mosquito Repellent Used Routinely Yes Information not available 06/10/2016 What Was The Date Of Your Most Recent Tobacco Screening? 07/18/2024 06/06/24 SM07/18/24MV [email or web address] Information not available 07/18/2024 How Many Children Do You Have? 2 2008 & 2011 Information not available 08/06/2009 Seat Belts Used Routinely Yes Information not available 06/10/2016 Smoke Alarm In Home Yes Information not available 06/10/2016 General Stress Level Medium Information not available 06/10/2016 Do You Use Sunscreen Routinely? Yes Information not available 06/10/2016 Sex: Female Functional Status None recorded. Mental Status None recorded. Family History Relationship Description Onset Age of this Age Resolved Age Notes LastModified by Organization Details LastModified Time Mother Unrelated osteop brent [email or web address] Not available 06/10/2016 13:58:47 Notes:no sibs Medical History No medical history recorded. Gynecological HistoryNo gynecological history recorded. Obstetrics History GPAL:G 0 P 0 0 0 0 Immunizations Vaccine Type Date Status Note Provider Nam margie and Address Organization Details Recorded Time Tdap 05/12/2009 completed PIA Oleary [facility] 09/28/2016 07:48:30 Tdap 06/29/2022 [facility] 12[facility]2022 14:19:32 influenza, unspecified formulation 04/30/2022 completed Eil Balderas, CARE MANAGEMENT ASSOCIATE null, [facility] 12/01/2022 14:19:44 SARS-COV-2 (COVID-19) vaccine, UNSPECIFIED 04/23/2022 completed Eli Balderas, CARE MANAGEMENT ASSOCIATE null, [facility] 12/01/2022 14:20:01 SARS-COV-2 (COVID-19) vaccine, UNSPECIFIED 04/30/2021 completed Eli Balderas, CARE MANAGEMENT ASSOCIATE null, [facility] 12/01/2022 14:20:16 SARS-COV-2 (COVID-19) vaccine, UNSPECIFIED 09/20/2020 completed Eli Balderas, CARE MANAGEMENT ASSOCIATE null, [facility] 12/01/2022 14:20:26 SARS-COV-2 (COVID-19) vaccine, UNSPECIFIED 08/30/2020 completed Eli Balderas, CARE MANAGEMENT ASSOCIATE null, [facility] 12/01/2022 14:20:31 influenza, unspecified formulation 05/09/2020 completed Eli Balderas, CARE MANAGEMENT ASSOCIATE null, [facility] 12/01/2022 14:20:46 Tdap 05/12/2009 completed Eli Balderas, CARE MANAGEMENT ASSOCIATE null, [facility] 12/01/2022 14:21:02 Past Encounters Encounter ID Performer Location Encounter Start Date Encounter Closed Date Diagnosis/Indication Diagnosis SNOMED-CT Code Diagnosis ICD10 Code Diagnosis Note [id number] [facility], OFFICE [address] [place] [address] 08/06/2009 10:25:44 08/09/2009 19:52:43 [id number] [facility], OFFICE [address] [place] [address] 07/21/2010 12:07:55 07/21/2010 14:19:49 [id number] Jennie Heredia D.O. , [facility], OFFICE [address] [place] [address] 06/10/2016 13:30:56 06/10/2016 16:35:18 Osteopenia 053560025 M85.80 Recommend f/u with Endocrine - Dr. Bowman due to her young age. Vitamin D deficiency 347 28977 E55.9 As above Murmur 741114482 R01.1 New murmur detected on exam, will send for echocardio gram. [id number] Jennie Heredia D.O. 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 Will ask staff to obtain a copy. Doing well, continue with NSAIDs PRN take with food to avoid GI upset. May want to consider antacid for GI protection . [id number] Jennie Heredia D.O. , [facility], OFFICE [address] [place] [address] 09/28/2016 07:34:50 09/28/2016 08:30:04 Adult health examination 936980068 Z00.00 see Risk Assessment and Lifestyle Change Counseling section above Counseling 082803894 Z71 .9 Reviewed strategies to keep mood in check. Consider SAD light into the winter 15-20 minutes in the morning. Acute uppe r respiratory infection 00704977 J06.9 Well-appea ring, well-hydra aylin, likely viral nature, no indication for antibiotic s. Advised increased fluids, relative rest, warm tea with honey, throat lozenges PRN. Follow up for increasing shortness of breath, wheezing or new fever. Vitamin D deficiency 347 68587 E55.9 [id number] Portia Shafer PA-C , [facility], OFFICE [address] [place] [address] 11/19/2016 10:52:00 11/19/2016 23:28:15 Sinusitis 38539060 J32.9 Ill appearing, 12 days of symptoms. Will start abx. Discussed small potential for cross-reac tivity to amoxicilli n allergy but unlikely. Edu pt to finish entire course even if you feel better and take probiotic supplement while on abx. Continue with supportive care extra rest/sleep , semi-uprig ht sleeping position, humidifier /hot steam shower, warm compress, sudafed, and ibuprofen as needed. [id number] Jennie Heredia D.O. , [facility], [address] [place] [address] 11/30/2017 08:59:30 11/30/2017 10:02:37 Adult health examination 536135377 Z00.00 see Risk Assessment and Lifestyle Change Counseling section above Counseling 207809685 Z71 .9 Reviewed long-term contracept nancie options. She will discuss with her partner.Donaldo cisneros results from prior PCP pending. Depression screening 171 155341 Z13.89 depression screening tool administer ed, entered into emr, scored and discussed, time greater than 7.5 minutesPHQ - 9 is 11/01 Osteopenia 006603071 M85 .80 Prior endo has closed practice plans to transfer care to Dr. Colvin. Vitamin D deficiency 347 07411 E55.9 Now on 4000 IU dailyRepea t level today. [id number] Lizzette Meeks MD , [facility], [address] [place] [address] 12/04/2022 09:17:33 12/04/2022 09:46:02 Contact dermatitis caused by urushiol from Eastern poison umer 950980384 L25.5 severe blistering on BL armssmall area on face in front of left ear, patches on abd/thigh left sideno s/sx secondary infectioni nstr what to watch fordiscuss ed tx optionsagr ee to topical and keeping larger oozing areas coveredsx mgmtf/u any s/sx infection [id number] Malinda Krishna PA-C , [facility], [address] [place] [address] 12/08/2022 09:08:31 12/08/2022 12:14:50 Intermittent palpitations 078905811 R00.2 wnl without concerning features Contact de rmatitis caused by urushiol from [place] poison umer 633293588 L25.5 moderate reaction with systemic changes, c/w topical steroid and add oral treatment todayadd:z yrtec, 20 mgs in AM x 7 - 10 days, then 10 mgs / day x 30 dayshydrox yzine 10 mgs, take 1-5 tabs at nightpo steroids, 40 mgs with 4 days taperepi penwe reviewed red flag symptoms to call ambulance or have spouse bring to ED for evaluation [id number] ZAIRE Mandujano, [facility], OFFICE [address] [facility] [place] [address] 12/15/2022 13:48:21 12/15/2022 14:52:29 Contact dermatitis caused by urushiol from [place] poison umer 872781136 L25.5 improved with reduced steroid taper forearms, add:zyrtec , 20 mgs in AM x 7 - 10 days, then 10 mgs / day x 30 dayshydrox yzine 10 mgs, take 1-5 tabs at nightpo steroids, 40 mgs with 4 days taperepi pen Secondary impetiginization 947157681 L01.1 b/l forearms, use topical mupirocin BID x 7 days, consider oral abx if no change in 48-72 hours or if you develop a feverred flag symptoms reviewed [id number] Juan Manuel Whitmore D.O. , [facility], OFFICE [address] [place] [address] 12/16/2022 10:37:49 12/16/2022 14:00:20 Adult health examination 144428422 Z00.00 Depression screening 171 953110 Z13.31 depression screening tool administer ed Screening for alcohol abuse 743036734 Z13.39 Alcohol use screening tool administer ed Perimenopausal state 147 9702618 19638 Z78.0 she is considerin g climarapro patch- her expanded duty dental assistant recommende dshe is still having monthly menses currently [id number] Makayla Johnson , [facility], OFFICE [address] [place] [address] 02/11/2023 11:34:24 02/11/2023 12:50:39 Headache 10504823 R51.9 - Several Covid tests, all negative. Tick-born dz panel ordered/pe nding.- Atypical sx, MRI (next week), cancel imaging if tick-born panel is positive. - initially considered sx relief w NSAIDs however pt reports that don't work for sx management and concerned about overuse of Excedrin migraine.- Trial of abortive sumatripta n therapy. Pt notes below.- Follow-up w/ neurology, please call if there are any problems with the referral- Please return if symptoms get worse, do not improve or if you develop new symptoms.[facility] matriptan: Take 50mg tablet at onset of headache; can take another 50mg tablet after 2-hours. Do not exceed 100mg in 24 hours. Triptans should be administer ed as soon as the headache begins, since early treatment is likely to be more effective. - Can use 800mg ibuprofen 3x/day or 600 mg/ 4x day Case discussed with Dr. Romeo. [id number] Micki Canales MD , [facility], OFFICE [address] [place] [address] 03/04/2023 08:56:05 03/04/2023 17:02:25 Lyme disease 52558774 A69.20 After a discussion of treatment and medication options, which included considerat ion of the best practices in medicine, a medical plan was provided. The patient's opinions and concerns were included in this treatment plan and goal. - Continue current tx regime until Tuesday, cefuroxime 500 mg BID- Check LFTs and CBC today- normal neuro exam today, seen neurologis t 02/22- Monitor symptoms for resolution , additional 7 days considered however I suspect symptoms will completely resolve with this course of treatment- continued care with acupunctur e/english medicine recommende d [id number] Micki Canales MD , [facility], OFFICE [address] [place] [address] 12/21/2023 11:44:46 12/21/2023 12:36:45 Adult health examination 199440272 Z00.00 Depression screening 171 576214 Z13.31 depression screening tool administer edNegative screen Screening for alcohol abuse 364200668 Z13.39 Alcohol use screening tool administer edNegative screen Osteopenia 456226909 M85 .80 F/b Dr. Ji Sunshine. [facility] meds. [id number] Micki Canales MD , [facility], OFFICE [address] [place] [address] 06/06/2024 11:40:01 06/06/2024 15:38:31 Major depressive disorder 571266865 F32.9 Recurrent depression triggered by recent stressor with dogPreviou sly tried lexapro for 8 days but did not give it a chance, interested in trying againDid not tolerate wellbutrin or prozac Start lexapro 5mg daily x 2 weeks, then increase to 10mg dailyf/u in 6 weeks [id number] Micki Canales MD , [facility], OFFICE [address] [place], [place] [address] 07/18/2024 14:10:49 07/18/2024 16:44:57 Influenza vaccination declined 344557123 Z28.21 Major depr essive disorder 376758762 F32.9 Depression now improving with Lexapro. Pt increased to 15mg on 07/17.Will f/u on depression at next visit in December Plan:-Cont inue Lexapro 15mg Lipoma of back 531496808 D17.1 Small lipoma is not bothersome to pt. Monitor. Health Concerns Section Related Observation LastModified by Organization Detai ls LastModified Time None Recorded Concern Status LastModified by Organization Details LastModified Time None Recorded Advance Directives Directive None Recorded Payers Encounter Date Sequence Insurance Name Policy Number Policy Escobedo Covered Member ID Escobedo Member ID Guarantor Name 02/11/2023 1 FORMERLY [facility] - DIRECT - CADDO ZERO (HMO) [id number] Varsha R Salazar [id number] Varsha R Salazar 03/04/2023 1 FORMERLY [facility] - DIRECT - [employer]DO ZERO (HMO) [id number] Varsha R Salazar [id number] Varsha R Salazar 12/21/2023 1 FORMERLY [facility] - DIRECT - [employer]DO ZERO (HMO) [id number] Varsha R Salazar [id number] Varsha R Salazar 06/06/2024 1 FORMERLY [facility] - DIRECT - CADDO ZERO (HMO) [id number] Varsha R Salazar [id number] 1 Varsha R Salazar 07/18/2024 1 FORMERLY [facility] - DIRECT - CADDO ZERO (HMO) [id number] Varsha R Salazar [id number] 1 Varsha Salazar Notes Date Note Type Note Provider Name and Address Organization Details Recorded Time text/html Follow up from ED visit on 02/07 for headache sx. Initial sx began on : body aches, joint pains . Tuesday (02/07) sx persisted, went to ED: mild stiff neck, extreme fatigue, N, headache, low-grade fever. Worked up for meningitis, labs reassuring. Reports after some medication in ED, there was some improvement. No imaging or LP at that time. Since then, had subjective fever, F, S, Tuesday (100.1), then again on Tuesday (100.0). No fever since Tuesday. Reports never had this type of pain previously, pinch , back of head, and front of head, head is on fire , can get blurry, both eyes watering (not usual). Wakes her up at night. Feels dizzy. No loss of vision, no LOC, some palpitations (hx of arrhythmia), no CP, no abd pain, no V/D (looser stools with migraine). At visit sx include nausea, headache, feeling dizzy; took t Excedrin migraine this morning. - Migraine hx: prominent in mid-20s, imitrex used during that time (1 yr), stopped while and breast feeding, returned on/off since then (around menstruation) but managed with Excedrin migraine. Request referal to Rashawn Ziegler ([facility] in [place]), out of network to [facility]. 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 Has 5 days left of treatment. States overall feeling much better but still experiencing some generalized fatigue, baby headache and some dizziness during the days, some Jaw pain (2 days ago, couple days ago). Some knee pain, right eye blurry, some feeling of inside pain of chest come and go. Seen neurology on for sx, recommended she follow with opthamology for eye care and prescribed triptan for abortive migraine therapy in the future. Otherwise ROS neg, no CP, SOB, new rash, or joint swelling. Micki Canales MD [address] [place], [address], [facility] 03/04/2023 17:06:54 4 text/html Physical Exam/FemaleReported bypatient.PHAPatient is here for a Wellness Visit. She describes her health status as good. Patient's health is better than last year.Notes:recent poison ivyRisk Assessment and Lifestyle Change Counseling 18-50Reported bypatient.Coronary Artery Disease Risk Assesment:No Family history of coronary artery disease; No personal history of diabetes Breast Cancer Risk Assessment:Family history of breast cancer(Grandmothers and Great Aunts as older women.); No history of breast cancer or dcis Lung Cancer Risk Assessment:Never smoked Cognitive/Behavioral Risk Assessment:Personal history of mental illness;Family history of mental illness Diet:Discussed the value of a Mediterranean diet, and eating more fruits and vegetables Exercise counseling:Discussed the importance of daily physical activity Safety:Counseled about protecting skin from the sun and lowering the risk of skin cancer Family Planning:Using control condoms New pt to meIntermittent self-limited waves of dizziness with eating and drinking x 1 yearH/o Lyme and bad poison umer last yearExercise 3-5x/wk for 30-60 min [employer] Regular periods q20-23 days, missed one in the last yearSleep - no trouble sleeping, gets 6-7.5hrs/night, feels tired in the AMReports fatigue in the afternoonsPsychologist - works about 4d/wk, private practice, [employer] in [facility], 2 kids (14yo, 12yo), lot of animals Micki Canales MD [address] [place] [address], [phone], [facility] 12/21/2023 12:28:40 4 text/html Tried lexapro in 2018 for depression/irritability/per i-menopausal. Took it for 8 days and it made her lightheaded, and she freaked out and stopped it. Also tried another antidepressant during pandemic -- wellbutrin and prozac which she did not tolerate due to side effects. Has been getting by, but since mid-Apr, symptoms much worse due to stress with her dog. Low motivation, very tired, would sleep all the time if she could, does nothing when she can, irritable, feels empty and hollow. Micki Canales MD [address] [place] [address], [phone], [facility] 06/06/2024 15:15:04 4 text/html Varsha Salazar is a 49 year old female presenting for f/u after starting Lexapro. Pt started at 5mg Lexapro after visit on 05/10 then increased to 10mg on June 14. She noted that Lexapro has helped sx of depression including anhedonia and increased her motivation, appetite, and interest in hobbies. She experienced side effects including increased headaches, fogginess, and nausea for couple weeks which have all since resolved. She believes she struggles with dysthymia, therefore while Lexapro brought her mood up to levels prior to her situational stressors, she felt she could increase her mood further. She increased Lexapro to 15 mg 07/17/24. Patient also noted Lipoma found my masseuse on January 12. Lipoma is 1/2 in wide and 1 in long on on medial left shoulder blade (in line with the olive) . She described it as squishy like an egg yolk. Micki Canales MD [address] [place] [address], [phone], [facility] 07/18/2024 16:50:16 OBGyn Episode No OBEpisode recorded.
== END 2024-10-26 08:14 | disposition home or self-care (01) ==
LOC: HO.MAMMO 08:13
PROVIDERS: PCP Family Medicine; Visit Provider Family Medicine
DX: R92.343 Mammographic extreme density, bilateral breasts (principal)
CPT/HCPCS: 76641

== ENCOUNTER → 2024-10-26 08:15 | Outpatient (BNV) | payer OTHER, SELFPAY | PROVIDERS: PCP Family Medicine; Visit Provider Internal Medicine | DX: R92.8 Other abnormal and inconclusive findings on diagnostic imaging of breast (principal) | CPT/HCPCS: 76641 ==